=== PATIENT | female | born 1995 | race Two or more races ===

== ENCOUNTER 2016-10-04 11:29 | Emergency (ER) | payer OTHER ==
[~2016-10-04] VITALS: Ht 157.5 cm; Wt 59.0 kg
--- NOTE | ~2016-10-04 | US106 ---
[facility] A Service of [facility] & [facility] RADIOLOGY TEXT RESULTS PATIENT: CHER DEMPSEY LOCATION: [facility] : [birth year] UNIT #: [id number] AGE: [address]: JOSE POTTER SEX: F ORDER DR: [id number] [facility] [address] [place], [place] [address] [id number] E MR#: [id number] Acc #: [id number] NAME: CHER DEMPSEY : 1995 SEX: F STUDY DATE/TIME: 10/04/2016 14:44 UNIT: CFWI ROOM: STUDY DESCRIPTION: US Preg Uterus Transvaginal Attending Physician: Jose Potter Aprn Ordering Physician: Jose Potter Aprn Primary Care Physician: No Primary Care Physician MEDICAL IMAGING REPORT This report is preliminary unless electronic signature is present EXAM Transvaginal and pelvic ultrasound. INDICATIONS Early with cramping. FINDINGS Transabdominal follow and transvaginal imaging was performed. The uterus is 9.2 x 4.1 x 5.1 cm on the transabdominal images. The right ovary is 3.2 cm in size and the left ovary is about 2 cm in size. Transvaginal imaging was then performed. The endometrial lining is better visualized, and there is no intrauterine present. The endometrial tissues are about 11 mm in thickness. Left ovary is normal, measuring 2.2 cm in size and had small follicles. The right ovary is about 3.8 cm in size and has a complex cyst within it measuring 2 cm. There is normal flow in each ovary. IMPRESSION 1. There is no evidence of an intrauterine . 2. There is a complex cyst in the right ovary that could represent a corpus luteum cyst. The patient may have a blighted ovum. 3. There is no free fluid. 4. The left ovary is normal. Dictated by... Kemal Jay M.D. THIS IS AN ELECTRONICALLY VERIFIED REPORT Kemal Jay M.D. at 10/05/2016 10:03 AM DYAN/[facility]aja [facility] A Service of [facility] & [facility] RADIOLOGY TEXT RESULTS PATIENT: CHER DEMPSEY LOCATION: [facility] : [birth year] UNIT #: [id number] AGE: [address]: JOSE POTTER SEX: F ORDER DR: TD: 10/04/2016 17:30 JOB #: [id number] MEDICAL IMAGING REPORT Page 1 of 1 COPY
[2016-10-04 12:07] LABS: URINE SOURCE CLEAN CATCH
[2016-10-04 12:13] LABS: URINE APPEARANCE CLEAR; URINE BILIRUBIN NEG (NEG); URINE BLOOD NEG (NEG); URINE COLOR YELLOW; URINE GLUCOSE NEG (NEG); URINE KETONE NEG (NEG); URINE LEUKOCYTE ESTERASE NEG (NEG); URINE NITRATE NEG (NEG); URINE PROTEIN NEG (NEG); URINE SPECIFIC GRAVITY 1.028 (1.003-1.035); URINE UROBILINOGEN 0.2 MG/DL (NEG)
[2016-10-04 12:18] LABS: BASOPHIL# 0.1 X10e3 (0-0.3); BASOPHIL% 0.8 % (0-2.5); EOSINOPHIL# 0.1 X10e3 (0-0.7); EOSINOPHIL% 0.9 % (0.0-7.0); HEMOGLOBIN 10.3 gm/dL (12.0-16.0); MEAN CELL VOLUME 72.1 FL (83-96); MEAN CORPUSCULAR HEMOGLOBIN 22.5 PG (28-34); MEAN CORPUSCULAR HGB CONC 31.2 g/dL (30-36); MEAN PLATELET VOLUME 9.3 FL (6.5-11.5); MONOCYTE# 0.5 X10e3 (0-1.0); MONOCYTE% 6.5 % (3.0-12.0); NEUTROPHIL# 4.7 X10e3 (1.5-7.1); NEUTROPHIL% 64.8 % (40-75); PLATELET COUNT 293 X10e3 (140-420); RED BLOOD COUNT 4.57 X10e (3.90-5.30); RED CELL DISTRIBUTION WIDTH 19.9 % (11.0-15.5); WHITE BLOOD COUNT 7.2 X10e3 (4.0-10.5)
[2016-10-04 12:19] LABS: DIFF IND NO
[2016-10-04 12:20] LABS: CULTURE INDICATED? NO
[2016-10-04 12:48] LABS: ALBUMIN SERUM 4.5 g/dL (3.5-5.0); BILIRUBIN, DIRECT 0.1 mg/dL (0.0-0.2); BILIRUBIN,INDIRECT 0.6 mg/dL (0.0-0.9); BILIRUBIN,TOTAL 0.7 mg/dL (0.2-2.0); CALCIUM SERUM 8.8 mg/dL (8.4-10.2); CREATININE SERUM 0.5 mg/dL (0.6-1.4); GLOM FILT RATE Estimated 136.4 mL/min (>60); POTASSIUM 3.5 mmol/L (3.5-5.1)
[2016-10-05 23:45] LABS: CHLAMYDIA TRACH Not Detected (Not Detected); N GONOR Not Detected (Not Detected)
== END 2016-10-04 15:45 | disposition home or self-care (01) ==
LOC: CED 11:29 → CFTX 11:29
PROVIDERS: Nurse Practitioner Family
DX: O99.89 Other specified diseases and conditions complicating pregnancy, childbirth and the puerperium (principal); R10.31 Right lower quadrant pain; R10.32 Left lower quadrant pain; Z88.0 Allergy status to penicillin
CPT/HCPCS: 76817; 80048; 80076; 81003; 83690; 84702; 84703; 85025; 86900; 86901; 87210; 87491; 87591; 87808; 87905; 99284

== ENCOUNTER 2016-10-18 20:33 | Emergency (ER) | payer OTHER ==
[~2016-10-18] VITALS: Ht 154.9 cm; Wt 59.0 kg
--- NOTE | ~2016-10-18 | US106 ---
[facility] A Service of [facility] RADIOLOGY TEXT RESULTS PATIENT: CHER DEMPSEY LOCATION: [facility] : [birth year] UNIT #: [id number] AGE: [address]: Steve Zeng DO SEX: F ORDER DR: [id number] [facility] [address] [place], [place] [address] [id number] E MR#: [id number] Acc #: [id number] NAME: CHER DEMPSEY : 1995 SEX: F STUDY DATE/TIME: 10/18/2016 22:04 UNIT: [facility] ROOM: STUDY DESCRIPTION: US Preg Uterus Transvaginal Attending Physician: Steve Zeng D.O. Ordering Physician: Steve Zeng D.O. Primary Care Physician: Salima Alejo M.D. MEDICAL IMAGING REPORT This report is preliminary unless electronic signature is present EXAM Pelvic ultrasound HISTORY . Vomiting for 3 days. Pelvic pain. FINDINGS Ultrasound examination of the pelvis was performed with transabdominal and endovaginal technique. There is a single intrauterine with a pole, yolk sac and gestational sac. cardiac activity is identified with rate of 120 bpm. Composite measurements indicate estimated gestational age of approximately 6 weeks 2 days. No abnormal fluid collections. Bilateral ovarian cysts including a dominant simple cyst in the right ovary measuring 2.2 cm. Blood flow is noted in both ovaries on Doppler. No free fluid. The uterine contour is normal. IMPRESSION 1. Single intrauterine . cardiac activity is identified. Estimated gestational age is approximately 6 weeks 2 days. 2. No free fluid. 3. Blood flow is noted in both ovaries on color Doppler. Dictated by... Cyril Pérez M.D. THIS IS AN ELECTRONICALLY VERIFIED REPORT Cyril Pérez M.D. at 10/19/2016 6:27 PM JAVIER/hailee TD: 10/19/2016 04:00 JOB #: [id number] [facility] A Service of [facility] RADIOLOGY TEXT RESULTS PATIENT: CHER DEMPSEY LOCATION: [facility] : [birth year] UNIT #: [id number] AGE: [address]: Steve Zeng DO SEX: F ORDER DR: MEDICAL IMAGING REPORT Page 1 of 1 COPY
[2016-10-18 22:16] LABS: URINE SOURCE CLEAN CATCH
[2016-10-18 22:19] LABS: BASOPHIL% 0.2 % (0-2.5); DIFF IND NO; EOSINOPHIL% 0.2 % (0.0-7.0); HEMATOCRIT 36.6 % (35.0-45.0); HEMOGLOBIN 11.5 gm/dL (12.0-16.0); LYMPHOCYTE% 20.7 % (17.0-45.0); MEAN CELL VOLUME 74.6 FL (83-96); MEAN CORPUSCULAR HEMOGLOBIN 23.4 PG (28-34); MEAN CORPUSCULAR HGB CONC 31.3 g/dL (30-36); MEAN PLATELET VOLUME 8.9 FL (6.5-11.5); MONOCYTE# 0.4 X10e3 (0-1.0); MONOCYTE% 3.8 % (3.0-12.0); NEUTROPHIL# 7.2 X10e3 (1.5-7.1); NEUTROPHIL% 75.1 % (40-75); PLATELET COUNT 322 X10e3 (140-420); RED BLOOD COUNT 4.91 X10e (3.90-5.30); RED CELL DISTRIBUTION WIDTH 20.9 % (11.0-15.5); WHITE BLOOD COUNT 9.6 X10e3 (4.0-10.5)
[2016-10-18 22:22] LABS: URINE APPEARANCE CLOUDY; URINE BILIRUBIN NEG (NEG); URINE BLOOD NEG (NEG); URINE COLOR DK YELLOW; URINE GLUCOSE NEG (NEG); URINE KETONE 3+ (NEG); URINE LEUKOCYTE ESTERASE NEG (NEG); URINE NITRATE NEG (NEG); URINE PH 5.5 (5-8); URINE PROTEIN TRACE (NEG); URINE SPECIFIC GRAVITY 1.036 (1.003-1.035); URINE UROBILINOGEN 0.2 MG/DL (NEG)
[2016-10-18 22:31] LABS: CULTURE INDICATED? NO
[2016-10-18 22:44] LABS: ALBUMIN SERUM 4.8 g/dL (3.5-5.0); BILIRUBIN, DIRECT 0.1 mg/dL (0.0-0.2); BILIRUBIN,INDIRECT 0.7 mg/dL (0.0-0.9); BILIRUBIN,TOTAL 0.8 mg/dL (0.2-2.0); BUN/CREATININE RATIO 17.14; CALCIUM SERUM 9.5 mg/dL (8.4-10.2); CREATININE SERUM 0.7 mg/dL (0.6-1.4); GLOM FILT RATE Estimated 122.1 mL/min (>60); POTASSIUM 3.6 mmol/L (3.5-5.1); PROTEIN TOTAL SERUM 8.9 g/dL (6.0-8.3)
== END 2016-10-19 00:25 | disposition home or self-care (01) ==
LOC: CED 20:33
PROVIDERS: Emergency Medicine
DX: O21.0 Mild hyperemesis gravidarum (principal); O99.89 Other specified diseases and conditions complicating pregnancy, childbirth and the puerperium; Z3A.01 Less than 8 weeks gestation of pregnancy; Z90.89 Acquired absence of other organs; Z98.890 Other specified postprocedural states; Z88.0 Allergy status to penicillin
CPT/HCPCS: 36415; 76817; 80048; 80076; 81003; 83690; 84702; 84703; 85025; 96361; 96374; 96375; 99284; J2765